=== PATIENT | male | born 1945 | race Caucasian/White ===

== ENCOUNTER → 2018-08-02 | Outpatient (CLI) | payer MEDICARE, OTHER ==
[~2018-08-02] VITALS: Ht 177.8 cm; Wt 97.1 kg
[~2018-08-02] MED LIST: REGADENOSON 0.4 MG/5 ML PF SYG IVP SCH
== END | disposition home or self-care (01) ==
LOC: SHCH 08:43
PROVIDERS: ATTEND Internal Medicine Cardiovascular Disease
DX: R94.31 Abnormal electrocardiogram [ECG] [EKG] (principal); R06.00 Dyspnea, unspecified; R01.1 Cardiac murmur, unspecified
CPT/HCPCS: 78452; 93017; 96374; A9500 ×2; J2785

== ENCOUNTER 2018-08-25 10:38 | Emergency (ER) | payer OTHER ==
[~2018-08-25 10:38] MED LIST changes: +ALLO100T PO; +ASPI-555 PO; +CARV12.511 PO; +CHOL200013 PO; +ERGO500014 PO; +FINA5TAB41 PO; +INSREG SQ; +LISI40TA4 PO; +NPH,100V11 SQ; +OMEG-116 PO; -REGADENOSON 0.4 MG/5 ML PF SYG IVP SCH; +SIMV40TA5 PO; +TAMS0.4C32 PO; +VIT1CAPS47 PO
[2018-08-25] MEDS ORDERED: LIDOCAINE 2%-EPI 1:200,000 20 ML VIAL IJ ONE (11:02)
== END 2018-08-25 12:26 | disposition home or self-care (01) ==
LOC: EDH 10:38
DX: L02.214 Cutaneous abscess of groin (principal); I10 Essential (primary) hypertension; E11.9 Type 2 diabetes mellitus without complications; E78.5 Hyperlipidemia, unspecified; Z88.6 Allergy status to analgesic agent; Z98.890 Other specified postprocedural states; Z87.891 Personal history of nicotine dependence
CPT/HCPCS: 10060; 99283; J3490

== ENCOUNTER → 2018-08-26 | Outpatient (CLI) | payer OTHER ==
[2018-08-21 12:46] LABS: BASOPHILS % (AUTO) 0.7 % (0.0-5.0); EOSINOPHILS % (AUTO) 2.2 % (0.0-8.0); HEMATOCRIT 40.7 % (42-54); LYMPHOCYTES % (AUTO) 20.9 % (21.0-51.0); MEAN CORPUSCULAR HEMOGLOBIN 29.8 pg (27.0-33.0); MEAN CORPUSCULAR HGB CONC 33.5 g/dL (32.0-36.0); MEAN CORPUSCULAR VOLUME 88.8 fL (79-99); MONOCYTES % (AUTO) 6.8 % (3.0-13.0); NEUTROPHILS % (AUTO) 69.4 % (40.0-77.0); PLATELET COUNT (AUTO) 196 K/uL (130-400); RED BLOOD CELL COUNT(AUTO) 4.58 MIL/uL (4.50-6.20); RED CELL DISTRIBUTION WIDTH 14.7 % (11.0-15.5); WHITE BLOOD COUNT (AUTO) 8.8 K/uL (4.8-10.8)
[2018-08-21 12:55] LABS: APPEARANCE,URINE Clear (CLEAR); BILIRUBIN,URINE Negative (NEGATIVE); COLOR,URINE Yellow (YELLOW); GLUCOSE, URINE (UA) 500 mg/dL (NEGATIVE); KETONES,URINE Negative (NEGATIVE); LEUKOCYTE ESTERASE ,URINE Negative (NEGATIVE); NITRATE,URINE Negative (NEGATIVE); OCCULT BLOOD,URINE Small (NEGATIVE); PH,URINE 5.5 (5.0-8.0); PROTEIN,URINE >=1000 mg/dL (NEGATIVE); UROBILINOGEN,URINE 0.2 mg/dL (0.2-1.0)
[2018-08-21 13:03] LABS: CREATININE 1.9 mg/dL (0.5-1.5); POTASSIUM 3.7 mmol/L (3.5-5.1)
[2018-08-21 13:05] LABS: BACTERIA,URINE Rare /HPF (None Seen); RBC,URINE 0-1 /HPF (0-1); SQUAMOUS EPITHELIAL CELL,UR Rare /HPF (0-2); WBC,URINE 0-1 /HPF (0-1)
[2018-08-21 13:09] LABS: INR 0.98 (0.85-1.15); PARTIAL THROMBOPLASTIN TIME 28.9 SEC (26.3-35.5); PROTHROMBIN TIME 10.3 SEC (9.6-11.6)
[2018-08-21 13:19] VITALS: BP 169/67
--- NOTE | 2018-08-23 11:33 | NUR ---
BMP reported Cr 1.9 drawn 08/21/18 to Quinton Almonte PAC, return call pending
--- NOTE | 2018-08-23 11:33 | NUR ---
Cr 1.9 reported to Quinton GALLARDO for Quinton Johnson to call me back
--- NOTE | 2018-08-23 16:00 | NUR ---
Cr 1.9 Reported to Mando VAZQUEZ cath lab manager, he stated he will have Dr Scott call me after the procedure he is currently in
--- NOTE | 2018-08-23 18:11 | NUR ---
Cr 1.[address] Scott to report abnormal lab
[~2018-08-26] VITALS: Ht 177.8 cm; Wt 96.3 kg
[~2018-08-26] MED LIST changes: +CLINDAMYCIN PO
== END | disposition home or self-care (01) ==
LOC: DAH 10:00 → EDSTATUS 11:00
PROVIDERS: ATTEND Internal Medicine Cardiovascular Disease
DX: I35.0 Nonrheumatic aortic (valve) stenosis (principal); Z53.8 Procedure and treatment not carried out for other reasons
CPT/HCPCS: 36415; 71045; 80048; 81001; 85025; 85610; 85730; 93005

== ENCOUNTER 2018-09-05 07:16 | Day surgery (SDC) | payer OTHER ==
[2018-09-02 15:23] VITALS: BP 170/58
[2018-09-02 15:23] LABS: EOSINOPHILS % (AUTO) 4.1 % (0.0-8.0); HEMATOCRIT 36.6 % (42-54); LYMPHOCYTES % (AUTO) 30.1 % (21.0-51.0); MEAN CORPUSCULAR HEMOGLOBIN 30.2 pg (27.0-33.0); MEAN CORPUSCULAR HGB CONC 34.5 g/dL (32.0-36.0); MEAN CORPUSCULAR VOLUME 87.4 fL (79-99); MONOCYTES % (AUTO) 6.7 % (3.0-13.0); NEUTROPHILS % (AUTO) 58.1 % (40.0-77.0); PLATELET COUNT (AUTO) 268 K/uL (130-400); RED BLOOD CELL COUNT(AUTO) 4.19 MIL/uL (4.50-6.20); RED CELL DISTRIBUTION WIDTH 14.3 % (11.0-15.5); WHITE BLOOD COUNT (AUTO) 9.1 K/uL (4.8-10.8)
[2018-09-02 15:28] LABS: APPEARANCE,URINE Clear (CLEAR); BILIRUBIN,URINE Negative (NEGATIVE); COLOR,URINE Yellow (YELLOW); GLUCOSE, URINE (UA) Negative (NEGATIVE); KETONES,URINE Negative (NEGATIVE); LEUKOCYTE ESTERASE ,URINE Negative (NEGATIVE); NITRATE,URINE Negative (NEGATIVE); OCCULT BLOOD,URINE Trace (NEGATIVE); PH,URINE 5.5 (5.0-8.0); PROTEIN,URINE >=1000 mg/dL (NEGATIVE); UROBILINOGEN,URINE 0.2 mg/dL (0.2-1.0)
[2018-09-02 15:34] LABS: CREATININE 1.8 mg/dL (0.5-1.5); POTASSIUM 4.1 mmol/L (3.5-5.1)
[2018-09-02 15:42] LABS: BACTERIA,URINE Rare /HPF (None Seen); MUCUS,URINE Few LPF (None Seen); RBC,URINE 0-1 /HPF (0-1); SQUAMOUS EPITHELIAL CELL,UR 0-2 /HPF (0-2); WBC,URINE None Seen /HPF (0-1)
[2018-09-02 15:55] LABS: INR 1.02 (0.85-1.15); PARTIAL THROMBOPLASTIN TIME 36.6 SEC (26.3-35.5); PROTHROMBIN TIME 10.7 SEC (9.6-11.6)
--- NOTE | 2018-09-02 16:12 | NUR ---
NOTE PT IS A RESCHEDULE FOR A LEFT GROIN ABCESS. HE WAS STARTED ON ABXS BY PRIMARY AND IS RECEIVING WOUND CARE. DR BURKETT IS AWARE AND HAS SEEN THE PATIENT IN OFFICE AND IS OKAY TO PROCEED WITH PROCEDURE NOW THAT PATIENT HAS BEEN TREATED. WILL BE PLACED ON CONTACT BECAUSE PT STILL HAS A LITTLE DRAINAGE COMING FROM SITE.
--- NOTE | 2018-09-04 10:09 | NUR ---
Called Darryn GALLARDO and spoke to him about pt having >1000 protein , trace of blood, mucus few and bacteria rare on ua.No new orders in regards to UA. I also advised him of ptt of 36.6, BUN 31, HAND COREMAKER 1.8 and no new orders, continue with procedure.
[~2018-09-05] VITALS: Ht 177.8 cm; Wt 96.6 kg
[2018-09-05] VITALS (9 sets, daily range): BP systolic 112–156; BP diastolic 50–74
[2018-09-05] MEDS ORDERED: SODIUM CHLORIDE 0.9% 1000ML 1,000 ML IV SCH (08:00)
[2018-09-05] MEDS ORDERED: HEPARIN SODIUM 1000UNIT/ML 10ML VIAL ONE (08:45)
[2018-09-05] MEDS ORDERED: LIDOCAINE HCL 2% 20ML ONE (08:45)
[2018-09-05] MEDS ORDERED: NITROGLYCERIN 5 MG/ML 10 ML VIAL IV ONE (08:45)
[2018-09-05] MEDS ORDERED: IOHEXOL 350 MG/ML 100ML INFUS..BTL IV ONE (08:45)
[2018-09-05] MEDS ORDERED: IOHEXOL-350 50ML VIAL IV ONE (08:45)
--- NOTE | 2018-09-05 08:51 | NUR ---
pt noted with a left groin abscess, slightly open, no drainage noted, covered. Dr Goff aware about abscess and lab results. no new orders
[2018-09-05] MEDS ORDERED: MIDAZOLAM HCL 1 MG/ML 2ML VIAL ONE (09:15)
[2018-09-05] MEDS ORDERED: HYDRALAZINE HCL 20 MG/ML VIAL ONE (09:29)
== END 2018-09-05 14:00 | disposition home or self-care (01) ==
LOC: DAH 07:16
PROVIDERS: ATTEND Internal Medicine Cardiovascular Disease
DX: I25.118 Atherosclerotic heart disease of native coronary artery with other forms of angina pectoris (principal); Z68.30 Body mass index [BMI] 30.0-30.9, adult; I10 Essential (primary) hypertension; E11.9 Type 2 diabetes mellitus without complications; Z98.890 Other specified postprocedural states; Z98.41 Cataract extraction status, right eye; Z98.42 Cataract extraction status, left eye; Z79.899 Other long term (current) drug therapy; Z79.84 Long term (current) use of oral hypoglycemic drugs; Z83.3 Family history of diabetes mellitus; Z82.49 Family history of ischemic heart disease and other diseases of the circulatory system; Z79.01 Long term (current) use of anticoagulants
CPT/HCPCS: 36415; 71045; 80048; 81001; 82948 ×2; 85025; 85610; 85730; 93005; 93458; A4606; C1760; C1769; C1894; J0360; J1644; J2250; J3490 ×2; J7030; Q9965; Q9967 ×2; 99156; 99157